=== PATIENT | male | born 1980 | race Caucasian/White ===

== ENCOUNTER 2017-04-06 10:32 | Emergency (ER) | payer SELFPAY ==
[2017-04-06] MEDS ORDERED: Acetaminophen-Codeine 300/30 mg Tab PO STA (10:56)
[2017-04-06 10:57] VITALS: TEMP 98.4; O2SAT 100
[2017-04-06] MEDS ORDERED: Acetaminophen-Codeine 300/30 mg Tab PO ONE (11:03)
--- NOTE | 2017-04-06 11:17 | C.PDOC ---
History Of Present Illness 37 yr old male presents to the ER with complaints of right upper back and parathoracic pain for 1 day. Patient states he bend down and the pain started shortly after. Denies direct trauma, fever, chest pain, SOB, cough, weakness or numbness. Time Seen by Provider: 04/06/17 10:38 Chief Complaint (Nursing): Back Pain History Per: Patient History/Exam Limitations: no limitations Onset/Duration Of Symptoms: Days (1) Past Medical History Reviewed: Historical Data, Nursing Documentation, Vital Signs Vital Signs: Last Vital Signs Temp 98.4 F 04/06/17 11:46 Pulse 66 04/06/17 11:46 Resp 20 04/06/17 11:46 BP 130/83 04/06/17 11:46 Pulse Ox 100 04/06/17 11:47 Family History: States: No Known Family Hx - Social History Hx Tobacco Use: No Hx Alcohol Use: Yes Hx Substance Use: No - Immunization History Hx Tetanus Toxoid Vaccination: No Hx Influenza Vaccination: No Hx Pneumococcal Vaccination: No Review Of Systems Except As Marked, All Systems Reviewed And Found Negative. Constitutional: Negative for: Fever Cardiovascular: Negative for: Chest Pain Respiratory: Negative for: Cough, Shortness of Breath Musculoskeletal: Positive for: Back Pain (Right upper back and parathoracic pain ) Neurological: Negative for: Weakness, Numbness Physical Exam - Physical Exam Appears: Non-toxic, No Acute Distress Skin: Warm, Dry, No Rash Head: Atraumatic, Normacephalic Oral Mucosa: Moist Neck: Normal, Normal ROM, Supple Chest: Symmetrical, Tenderness (Tenderness to right posterior rib region) Respiratory: Normal Breath Sounds, No Rales, No Rhonchi, No Stridor, No Wheezing Back: Other ((+) Right parathoracic and right lateral posterior thoracic rib area tenderness. No cellulitic process.) Extremity: Normal ROM, No Swelling Neurological/Psych: Oriented x3, Normal Speech, Normal Motor, Normal Sensation ED Course And Treatment O2 Sat by Pulse Oximetry: 100 (RA) Pulse Ox Interpretation: Normal - Radiology CXR: Viewed By Me, Read By Radiologist CXR Interpretation: Yes: No Acute Disease - Other Rad X-Ray - Thoracic Spine X-Ray: Viewed By Me, Read By Radiologist Interpretation: HISTORY: back pain. COMPARISON: No prior. FINDINGS: BONES: Alignment maintained. No fracture. Diffuse thoracic spondylosis - bridging osteophytes anterior. DISC SPACES: Normal. SOFT TISSUES: Normal. OTHER FINDINGS: None. IMPRESSION: No fracture dislocation. Bridging anterior spondylosis-- compatible with DISH Medical Decision Making Medical Decision Making: IMPRESSION: Back pain PLAN: * X-Ray - Thoracic Spine * CXR * Motrin PO * Tylenol/Codeine PO NOTE: * XRay was ordered, which was found to be negative. * Patient is discharged home with pain management. * Instructed to follow up with PMD for further evaluation. Disposition Counseled Patient/Family Regarding: Studies Performed, Diagnosis, Need For Followup, Rx Given - Disposition Referrals: [facility] [Outside] Disposition: HOME/ ROUTINE Disposition Time: 11:36 Condition: IMPROVED Additional Instructions: follow up with medical clinic in 2 days call to make an appointment take pain medication as needed return to ER if symptoms worsens or progress Prescriptions: Naproxen [Naprosyn] 500 mg PO BID PRN #16 tab PRN Reason: Pain, Moderate (4-7) traMADol [Ultram] 50 mg PO TID PRN #10 tab PRN Reason: Pain, Moderate (4-7) Instructions: Back Pain (GEN) Forms: [facility] (Maltese), General Discharge Instructions - Clinical Impression Clinical Impression: Thoracic back sprain - Scribe Statement The provider has reviewed the documentation as recorded by the Dominic Ramirez Provider Attestation: All medical record entries made by the Dominic were at my direction and personally dictated by me. I have reviewed the chart and agree that the record accurately reflects my personal performance of the history, physical exam, medical decision making, and the department course for this patient. I have also personally directed, reviewed, and agree with the discharge instructions and disposition.
--- NOTE | 2017-04-06 11:20 | RAD ---
HISTORY: back pain COMPARISON: No prior. FINDINGS: BONES: Alignment maintained. No fracture. Diffuse thoracic spondylosis - bridging osteophytes anterior DISC SPACES: Normal. SOFT TISSUES: Normal. OTHER FINDINGS: None. IMPRESSION: No fracture dislocation. Bridging anterior spondylosis-- compatible with DISH
--- NOTE | 2017-04-06 11:39 | RAD ---
HISTORY: cough COMPARISON: Not available TECHNIQUE: Chest PA and lateral FINDINGS: LUNGS: No active pulmonary disease. PLEURA: No significant pleural effusion identified. No pneumothorax apparent. CARDIOVASCULAR: Normal. OSSEOUS STRUCTURES: No significant abnormalities. VISUALIZED UPPER ABDOMEN: Normal. OTHER FINDINGS: None. IMPRESSION: No active disease.
[2017-04-06 11:48] VITALS: BP 130/83; PULSE 66; RESP 20
== END 2017-04-06 11:47 | disposition home or self-care (01) ==
LOC: C.ER 10:32
DX: S23.3XXA Sprain of ligaments of thoracic spine, initial encounter (principal); X50.1XXA Overexertion from prolonged static or awkward postures, initial encounter